=== PATIENT | male | born 2000 | race Caucasian/White ===

== ENCOUNTER 2023-01-21 11:47 | Emergency (ER) | payer BC, OTHER ==
[2023-01-21 11:52] VITALS: BP 122/77; PULSE 92; RESP 18; TEMP 98.9
[2023-01-21] MEDS ORDERED: HYDROcodone/APAP 5-325MG 1 EACH TAB PO STA (12:05)
[2023-01-21] MEDS ORDERED: ACET/COD 300 MG/30 MG STARTER PACK 6 TAB BTL PO STA (12:05)
--- NOTE | 2023-01-21 12:07 | ED ---
ENT HPI - General Chief complaint: Dental/Oral Stated complaint: Abscess L side of Face Swollen Time Seen by Provider: 01/21/23 11:55 Source: patient, RN notes reviewed Mode of arrival: ambulatory Limitations: no limitations - History of Present Illness Initial comments: 23-year-old male presents emergency Department with chief complaint of left- sided dental pain and swelling. Patient was seen at urgent care was given some naproxen. Patient states swelling has worsened. He is appointment with dentist tomorrow. He states that it tooth that fractured. Patient denies any fevers or chills no drainage. - Related Data Previous Rx's Medication Instructions Recorded clindamycin HCL 300 mg PO QID #40 cap 01/21/23 Allergies Allergy/AdvReac Type Severity Reaction Status Date / Time sulfamethoxazole Allergy Unknown Verified 01/21/23 11:53 [From Bactrim] Childhood trimethoprim [From Bactrim] Allergy Unknown Verified 01/21/23 11:53 Childhood Review of Systems ROS Statement: Those systems with pertinent positive or pertinent negative responses have been documented in the HPI. ROS Other: All systems not noted in ROS Statement are negative. Past Medical History Past Medical History: No Reported History History of Any Multi-Drug Resistant Organisms: None Reported Past Surgical History: No Surgical Hx Reported Past Psychological History: No Psychological Hx Reported Smoking Status: Vaper Past Alcohol Use History: None Reported Past Drug Use History: None Reported General Exam Limitations: no limitations General appearance: alert, in no apparent distress Head exam: Present: atraumatic, normocephalic, normal inspection Eye exam: Present: normal appearance, PERRL, EOMI. Absent: scleral icterus, conjunctival injection, periorbital swelling ENT exam: Present: mucous membranes moist, TM's normal bilaterally, normal external ear exam. Absent: normal oropharynx (Dental fracture left lower with moderate swelling, no drainable abscess) Neck exam: Present: normal inspection, full ROM. Absent: tenderness, meningismus, lymphadenopathy Respiratory exam: Present: normal lung sounds bilaterally. Absent: respiratory distress, wheezes, rales, rhonchi, stridor Cardiovascular Exam: Present: regular rate, normal rhythm, normal heart sounds. Absent: systolic murmur, diastolic murmur, rubs, gallop, clicks Course Vital Signs 01/21/23 11:48 Temperature 98.9 F Pulse Rate 92 Respiratory 18 Rate Blood Pressure 122/77 O2 Sat by Pulse 98 Oximetry Medical Decision Making - Medical Decision Making Was pt. sent in by a medical professional or institution (YANIQUE Hankins, FRONT OFFICE ADMINISTRATOR, urgent care, hospital, or detention...) When possible be specific @ -No Did you speak to anyone other than the patient for history (EMS, parent, family, police, friend...)? What history was obtained from this source @ -No Did you review nursing and triage notes (agree or disagree)? Why? @ -I reviewed and agree with nursing and triage notes Were old charts reviewed (outside hosp., previous admission, EMS record, old EKG, old radiological studies, urgent care reports/EKG's, detention records)? Report findings @ -No old charts were reviewed Differential Diagnosis (chest pain, altered mental status, abdominal pain women, abdominal pain men, vaginal bleeding, weakness, fever, dyspnea, syncope, headache, dizziness, GI bleed, back pain, seizure, CVA, palpatations, mental health, musculoskeletal)? @ -Dental abscess, dental fracture, dental infection EKG interpreted by me (3pts min.). @ -None X-rays interpreted by me (1pt min.). @ -None done CT interpreted by me (1pt min.). @ -None done U/S interpreted by me (1pt. min.). @ -None done What testing was considered but not performed or refused? (CT, X-rays, U/S, labs)? Why? @ -None What meds were considered but not given or refused? Why? @ -None Did you discuss the management of the patient with other professionals (professionals i.e. YANIQUE Hankins, FRONT OFFICE ADMINISTRATOR, lab, RT, psych nurse, rn social work, marketing project lead, teacher, guest relations officer, case managers)? Give summary @ -No Was smoking cessation discussed for >3mins.? @ -No Was critical care preformed (if so, how long)? @ -No Were there social determinants of health that impacted care today? How? (Homelessness, low income, unemployed, alcoholism, drug addiction, transportation, low edu. Level, literacy, decrease access to med. care, usp, rehab)? @ -No Was there de-escalation of care discussed even if they declined (Discuss DNR or withdrawal of care, Hospice)? DNR status @ -No What co-morbidities impacted this encounter? (DM, HTN, Smoking, COPD, CAD, Cancer, CVA, ARF, Chemo, Hep., AIDS, mental health diagnosis, sleep apnea, morbid obesity)? @ -None Was patient admitted / discharged? Hospital course, mention meds given and route, prescriptions, significant lab abnormalities, going to OR and other pertinent info. @ -Discharge patient we placed on clindamycin patient has a follow-up appointment tomorrow with dentist patient provided pain control return parameters were discussed. Undiagnosed new problem with uncertain prognosis? @ -No Drug Therapy requiring intensive monitoring for toxicity (Heparin, Nitro, Insulin, Cardizem)? @ -No Were any procedures done? @ -No Diagnosis/symptom? @ -Dental abscess Acute, or Chronic, or Acute on Chronic? @ -Acute Uncomplicated (without systemic symptoms) or Complicated (systemic symptoms)? @ - uncomplicated Side effects of treatment? @ -No Exacerbation, Progression, or Severe Exacerbation? @ -No Poses a threat to life or bodily function? How? (Chest pain, [place], [place], pneumonia, PE, COPD, DKA, ARF, appy, cholecystitis, CVA, Diverticulitis, Homicidal, Suicidal, threat to staff... and all critical care pts) @ -No Disposition Clinical Impression: Dental abscess, Fracture of tooth Disposition: HOME SELF-CARE Condition: Stable Instructions (If sedation given, give patient instructions): Dental Abscess (ED) Additional Instructions: Please return to the Emergency Department if symptoms worsen or any other concerns. Prescriptions: clindamycin HCL 300 mg PO QID #40 cap Is patient prescribed a controlled substance at d/c from ED?: No Referrals: None,Stated [Primary Care Provider] - 1-2 days Time of Disposition: 12:06
== END 2023-01-21 12:17 | disposition home or self-care (01) ==
LOC: EC 11:47
DX: K04.7 Periapical abscess without sinus (principal); K03.81 Cracked tooth; F17.290 Nicotine dependence, other tobacco product, uncomplicated; Z88.1 Allergy status to other antibiotic agents; Z88.2 Allergy status to sulfonamides
CPT/HCPCS: 99283

== ENCOUNTER 2023-01-24 12:07 | Inpatient (IN) | payer BC, OTHER ==
[2023-01-24] MEDS ORDERED: MORPHINE SULFATE 4 MG/ML SYRINGE IVP STA (14:52)
--- NOTE | 2023-01-24 14:54 | ED ---
ENT HPI - General Chief complaint: Dental/Oral Stated complaint: facial swelling Time Seen by Provider: 01/24/23 14:31 Source: patient Mode of arrival: ambulatory Limitations: no limitations - History of Present Illness Initial comments: 23 year old male presenting to the ED with a chief complaint of dental problem. Patient initially presented to the ED 3 days ago due to dental pain and swelling. Was prescribed clindamycin and patient reports that he has been taking this as instructed. He didn't follow-up with his dentist the following day and reports no dental procedure until swelling has improved however advised him to continue antibiotics. Despite continuing antibiotics notes increased swelling on the left side of his face and now notes that it feels like it started to spread to his neck. Denies fever. Denies dyspnea. No other complai nts. - Related Data Previous Rx's Medication Instructions Recorded clindamycin HCL 300 mg PO QID #40 cap 01/21/23 Allergies Allergy/AdvReac Type Severity Reaction Status Date / Time sulfamethoxazole Allergy Unknown Verified 01/24/23 12:16 [From Bactrim] Childhood trimethoprim [From Bactrim] Allergy Unknown Verified 01/24/23 12:16 Childhood Review of Systems ROS Statement: Those systems with pertinent positive or pertinent negative responses have been documented in the HPI. ROS Other: All systems not noted in ROS Statement are negative. Past Medical History Past Medical History: No Reported History History of Any Multi-Drug Resistant Organisms: None Reported Past Surgical History: No Surgical Hx Reported Past Psychological History: No Psychological Hx Reported Smoking Status: Vaper Past Alcohol Use History: None Reported Past Drug Use History: None Reported General Exam Limitations: no limitations General appearance: alert Head exam: Present: atraumatic ENT exam: Present: other (Significant swelling on the left side of the face with swelling extending into the neck. Airway patent.) Respiratory exam: Present: normal lung sounds bilaterally Cardiovascular Exam: Present: regular rate, normal rhythm GI/Abdominal exam: Present: soft Neurological exam: Present: alert, oriented X3 Skin exam: Present: warm, dry Course Vital Signs 01/24/23 01/24/23 12:13 15:09 Temperature 98.2 F Pulse Rate 94 82 Respiratory 18 16 Rate Blood Pressure 151/77 115/76 O2 Sat by Pulse 99 99 Oximetry Medical Decision Making - Medical Decision Making Was pt. sent in by a medical professional or institution (Dr., PA, PREDATORY ANIMAL EXTERMINATOR, urgent care, hospital, or longterm...) When possible be specific @ -No Did you speak to anyone other than the patient for history (EMS, parent, family, police, friend...)? What history was obtained from this source @ -No Did you review nursing and triage notes (agree or disagree)? Why? @ -I reviewed and agree with nursing and triage notes Were old charts reviewed (outside hosp., previous admission, EMS record, old EKG, old radiological studies, urgent care reports/EKG's, longterm records)? Report findings @ -No old charts were reviewed Differential Diagnosis (chest pain, altered mental status, abdominal pain women, abdominal pain men, vaginal bleeding, weakness, fever, dyspnea, syncope, headache, dizziness, GI bleed, back pain, seizure, CVA, palpatations, mental health, musculoskeletal)? @ -Renzo angina, ANUG, dental abscess. This is not meant to be an all-incl usive list. EKG interpreted by me (3pts min.). @ -None, pending X-rays interpreted by me (1pt min.). @ -None done CT interpreted by me (1pt min.). @ -CT soft tissue showed extensive left facial cellulitis with multifocal abscess measuring approximately 3 x 2 cm with area of focal dental caries and osseous erosion at lower left third molar region. U/S interpreted by me (1pt. min.). @ -None done What testing was considered but not performed or refused? (CT, X-rays, U/S, labs)? Why? @ -None What meds were considered but not given or refused? Why? @ -None Did you discuss the management of the patient with other professionals (professionals i.e. , PA, PREDATORY ANIMAL EXTERMINATOR, lab, RT, psych nurse, social media senior associate, building supplies salesperson retail, teacher, chief operations officer, senior case manager)? Give summary @ -Case discussed with Dr. Otero of ENT who advised contacting oral surgery. Spoke to Dr. Petersen of oral surgery who recommended admission of the patient. He will see the patient himself either today or tomorrow. Was smoking cessation discussed for >3mins.? @ -No Was critical care preformed (if so, how long)? @ -No Were there social determinants of health that impacted care today? How? (Homelessness, low income, unemployed, alcoholism, drug addiction, transportation, low edu. Level, literacy, decrease access to med. care, half-way, rehab)? @ -No Was there de-escalation of care discussed even if they declined (Discuss DNR or withdrawal of care, Hospice)? DNR status @ -No What co-morbidities impacted this encounter? (DM, HTN, Smoking, COPD, CAD, Cancer, CVA, ARF, Chemo, Hep., AIDS, mental health diagnosis, sleep apnea, morbid obesity)? @ -None Was patient admitted / discharged? Hospital course, mention meds given and route, prescriptions, significant lab abnormalities, going to OR and other pertinent info. @ -Admission. Labs significant for an elevated white count at 12.7, otherwise unremarkable. Computed tomography scan significant for extensive left facial cellulitis with multifocal abscess measuring approximately 3 x 2 cm with area of focal dental caries and osseous erosion at lower left third molar region. Discussed with Dr. Petersen of oral surgery who advised admission and will evaluate the patient. Patient will be kept nothing by mouth. Discussed plan of care with patient who is in agreement. Undiagnosed new problem with uncertain prognosis? @ -No Drug Therapy requiring intensive monitoring for toxicity (Heparin, Nitro, Insulin, Cardizem)? @ -No Were any procedures done? @ -No Diagnosis/symptom? @ -Facial abscess Acute, or Chronic, or Acute on Chronic? @ -Acute Uncomplicated (without systemic symptoms) or Complicated (systemic symptoms)? @ -Uncomplicated Side effects of treatment? @ -No Exacerbation, Progression, or Severe Exacerbation? @ -No Poses a threat to life or bodily function? How? (Chest pain, [place], [place], pneumonia, PE, COPD, DKA, ARF, appy, cholecystitis, CVA, Diverticulitis, Homicidal, Suicidal, threat to staff... and all critical care pts) @ -No - Lab Data Result diagrams: 01/24/23 14:54 01/24/23 14:54 Lab Results 01/24/23 01/24/23 01/24/23 Range/Units 14:54 14:54 14:54 WBC 12.7 H (3.8-10.6) k/uL RBC 4.91 (4.30-5.90) m/uL Hgb 14.8 (13.0-17.5) gm/dL Hct 42.3 (39.0-53.0) % MCV 86.1 (80.0-100.0) fL MCH 30.1 (25.0-35.0) pg MCHC 35.0 (31.0-37.0) g/dL RDW 11.8 (11.5-15.5) % Plt Count 224 (150-450) k/uL MPV 7.9 Neutrophils % 86 % Lymphocytes % 6 % Monocytes % 5 % Eosinophils % 2 % Basophils % 0 % Neutrophils # 11.0 H (1.3-7.7) k/uL Lymphocytes # 0.8 L (1.0-4.8) k/uL Monocytes # 0.7 (0-1.0) k/uL Eosinophils # 0.2 (0-0.7) k/uL Basophils # 0.0 (0-0.2) k/uL Sodium 140 (137-145) mmol/L Potassium 4.1 (3.5-5.1) mmol/L Chloride 99 (98-107) mmol/L Carbon Dioxide 29 (22-30) mmol/L Anion Gap 12 mmol/L BUN 15 (9-20) mg/dL Creatinine 0.65 L (0.66-1.25) mg/dL Est GFR (CKD-EPI)AfAm >90 (>60 ml/min/1.73 sqM) Est GFR (CKD-EPI)NonAf >90 (>60 ml/min/1.73 sqM) Glucose 132 H (74-99) mg/dL Plasma Lactic Acid Joey 1.4 (0.7-2.0) mmol/L Calcium 9.5 (8.4-10.2) mg/dL Total Bilirubin 0.7 (0.2-1.3) mg/dL AST 18 (17-59) U/L ALT 30 (4-49) U/L Alkaline Phosphatase 76 (38-126) U/L Total Protein 8.2 (6.3-8.2) g/dL Albumin 4.4 (3.5-5.0) g/dL Disposition Clinical Impression: Facial abscess Disposition: ADMITTED IP TO THIS [facility] Instructions (If sedation given, give patient instructions): Dental Abscess (ED) Referrals: None,Stated [Primary Care Provider] - 1-2 days Time of Disposition: 17:00
[2023-01-24 15:24] LABS: Basophils % (A) 0 %; Eosinophils # (A) 0.2 k/uL (0-0.7); Eosinophils % (A) 2 %; HCT 42.3 % (39.0-53.0); HGB 14.8 gm/dL (13.0-17.5); Lymphocytes # (A) 0.8 k/uL (1.0-4.8); Lymphocytes % (A) 6 %; MCH 30.1 pg (25.0-35.0); MCV 86.1 fL (80.0-100.0); Mean Platelet Volume 7.9; Monocytes # (A) 0.7 k/uL (0-1.0); Monocytes % (A) 5 %; Neutrophils % (A) 86 %; Platelet Count 224 k/uL (150-450); RBC 4.91 m/uL (4.30-5.90); RDW 11.8 % (11.5-15.5); WBC 12.7 k/uL (3.8-10.6)
[2023-01-24 15:34] LABS: ALT 30 U/L (4-49); AST 18 U/L (17-59); African American GFR (CKD) >90 (>60 ml/min/1.73 sqM); Albumin 4.4 g/dL (3.5-5.0); Alkaline Phosphatase 76 U/L (38-126); Anion Gap 12 mmol/L; Blood Urea Nitrogen 15 mg/dL (9-20); Calcium 9.5 mg/dL (8.4-10.2); Carbon Dioxide 29 mmol/L (22-30); Chloride 99 mmol/L (98-107); Glucose 132 mg/dL (74-99); Non-African American GFR(CKD) >90 (>60 ml/min/1.73 sqM); Potassium 4.1 mmol/L (3.5-5.1); Sodium 140 mmol/L (137-145); Total Bilirubin 0.7 mg/dL (0.2-1.3); Total Protein 8.2 g/dL (6.3-8.2)
--- NOTE | 2023-01-24 16:15 | CT ---
EXAMINATION TYPE: CT soft tissue neck w con DATE OF EXAM: 01/24/2023 COMPARISON: Non- HISTORY: R/O melina. CT DLP: 186.4 mGycm CONTRAST: CT scan of the neck is performed with IV Contrast, patient injected with 100 ml mL of Isovue 300. Contrast enhanced CT of the neck was performed from the skull base through the lung apices. There is extensive left facial soft tissue cellulitis extending from the approximate level of the TMJ joint through the submandibular region. There are multifocal areas of decreased attenuation noted fe lt to reflect multifocal abscess extending from the angle of the mandible through the anterior mandib ular body region. Exact measurement is difficult to elucidate however dominant abscess is seen more a nteriorly and measures 3.0 x 1.9 cm. Inflammatory changes seen at the floor of the mouth on the left. Focal area of dental caries seen with osseous erosion lower left third molar region. AIRWAY: The supraglottic, glottic, and subglottic portions of the airway appear patent. SALIVARY GLANDS: The submandibular and parotid glands are free of mass or inflammatory process. THYROID GLAND: No nodules or masses seen. LYMPH NODES: Reactive adenopathy within the submental region measuring up to 9.3 mm. Reactive lymph n ode left internal jugular chain measuring 9.4 mm. LUNG APICES: No nodule or mass is seen. OTHER: Vascular structures are patent. No significant degenerative change of the cervical spine. N o abscess seen. IMPRESSION: 1. Extensive left facial cellulitis with multifocal abscesses as discussed above. There is inflammato ry change noted at the floor of the mouth on the left with focal area of dental caries seen with osse ous erosion lower left third molar region. At this time there is no evidence for narrowing of the air way or significant mass effect. Reactive adenopathy seen.
[2023-01-24] MEDS ORDERED: AMPICILLIN-SULBACTAM 3 GM in SODIUM CHLORIDE 0.9% 50 ML IVPB STA (16:45)
[2023-01-24] MEDS ORDERED: AMPICILLIN-SULBACTAM 3 GM in SODIUM CHLORIDE 0.9% 100 ML IVPB STA (16:47)
[2023-01-24] MEDS ORDERED: HYDROmorphone 1 MG/ML 1 ML SYRINGE IVP STA (17:06)
[2023-01-24] MEDS ORDERED: NALOXONE 0.4 MG/ML 1 ML VIAL IV PRN (17:34)
[2023-01-24] MEDS ORDERED: HYDROmorphone 0.5 MG/0.5 ML SYRINGE IVP PRN (17:34)
[2023-01-24] MEDS ORDERED: ONDANSETRON 4 MG/2 ML VIAL IVP PRN (17:34)
[2023-01-24] MEDS ORDERED: ACETAMINOPHEN TAB 325 MG TAB PO PRN (17:34)
[2023-01-24] MEDS ORDERED: HYDROmorphone 1 MG/ML 1 ML SYRINGE IVP PRN (17:34)
[2023-01-24] MEDS: SODIUM CHLORIDE 0.9% 1,000 ML IV SCH (18:48)
[2023-01-24] MEDS: CLINDAMYCIN 300 MG in DEXTROSE 5% IN WATER 50 ML IVPB SCH ×2 (19:13)
[2023-01-24 22:22] VITALS: RESP 18
[2023-01-24] MEDS: AMPICILLIN-SULBACTAM 3 GM in SODIUM CHLORIDE 0.9% 100 ML IVPB SCH (23:29)
[2023-01-25] MEDS: CLINDAMYCIN 300 MG in DEXTROSE 5% IN WATER 50 ML IVPB SCH ×4 (00:46→06:00)
[2023-01-25 02:15] VITALS: BP 112/61
[2023-01-25] MEDS: AMPICILLIN-SULBACTAM 3 GM in SODIUM CHLORIDE 0.9% 100 ML IVPB SCH (05:19)
[2023-01-25 07:26] LABS: HCT 39.6 % (39.0-53.0); HGB 13.7 gm/dL (13.0-17.5); MCH 29.9 pg (25.0-35.0); MCHC 34.6 g/dL (31.0-37.0); MCV 86.4 fL (80.0-100.0); Mean Platelet Volume 7.9; Platelet Count 258 k/uL (150-450); RBC 4.58 m/uL (4.30-5.90); WBC 13.4 k/uL (3.8-10.6)
--- NOTE | 2023-01-25 07:48 | P.GSCN ---
History of Present Illness Consult date: 01/25/23 Reason for Consult: Dental abscess Requesting physician: Abiodun Castillo History of present illness: 23 year old male presenting to the ED with a chief complaint of dental problem. Patient initially presented to the ED 3 days ago due to dental pain and swelling. Was prescribed Amoxicillin and patient reports that he has been taking this as instructed. He did follow-up with his dentist on [address] the following day and reports no dental procedure until swelling has improved however advised him to continue antibiotics. Despite continuing antibiotics notes increased swelling on the left side of his face and now notes that it feels like it started to spread to his neck. Has been in observation unit overnight receiving clindamycin IV. Reports he feels no worse this morning perhaps better. Denies fever. Denies dyspnea. No other complaints. Review of Systems As per HPI Past Medical History Past Medical History: No Reported History History of Any Multi-Drug Resistant Organisms: None Reported Past Surgical History: No Surgical Hx Reported Past Psychological History: No Psychological Hx Reported Smoking Status: Vaper Past Alcohol Use History: None Reported Past Drug Use History: None Reported Medications and Allergies Home Medications Medication Instructions Recorded Confirmed Type clindamycin HCL 300 mg PO QID #40 cap 01/21/23 01/24/23 Rx Chlorhexidine Gluconate [Peridex] 15 ml PO BID 01/24/23 01/24/23 History Ibuprofen [Motrin Ib] 800 mg PO Q6H PRN 01/24/23 01/24/23 History Allergies Allergy/AdvReac Type Severity Reaction Status Date / Time sulfamethoxazole Allergy Unknown Verified 01/24/23 18:14 [From Bactrim] Childhood trimethoprim [From Bactrim] Allergy Unknown Verified 01/24/23 18:14 Childhood Surgical - Exam Vital Signs Temp Pulse Resp BP Pulse Ox 98.2 F 94 18 151/77 99 01/24/23 12:13 01/24/23 12:13 01/24/23 12:13 01/24/23 12:13 01/24/23 12:13 Patient lying in bed with a friend at the bedside. Appears comfortable easily arousable alert and oriented 3. Patient has a 2 cm x 2 cm fluctuant swelling the mandibular body on the left side adjacent to tooth #18. Swelling is demarcated. No fistula noted. Swelling is tender but able to palpate. Intraoral exam is difficult to the trismus patient able to open approximately 15 mm. Reports painful when attempting open wider. Visibly tooth #18 appears fractured. No pus noted intraorally. Floor of the mouth is normal. The patient's tongue is not swollen. Patient's able to swallow without difficulty. Results - Labs 01/25/23 06:41 01/24/23 14:54 Abnormal Lab Results - Last 24 Hours (Table) 01/24/23 01/24/23 01/25/23 Range/Units 14:54 14:54 06:41 WBC 12.7 H 13.4 H (3.8-10.6) k/uL Neutrophils # 11.0 H (1.3-7.7) k/uL Lymphocytes # 0.8 L (1.0-4.8) k/uL Creatinine 0.65 L (0.66-1.25) mg/dL Glucose 132 H (74-99) mg/dL Diabetes panel 01/24/23 Range/Units 14:54 Sodium 140 (137-145) mmol/L Potassium 4.1 (3.5-5.1) mmol/L Chloride 99 (98-107) mmol/L Carbon Dioxide 29 (22-30) mmol/L BUN 15 (9-20) mg/dL Creatinine 0.65 L (0.66-1.25) mg/dL Glucose 132 H (74-99) mg/dL Calcium 9.5 (8.4-10.2) mg/dL AST 18 (17-59) U/L ALT 30 (4-49) U/L Alkaline Phosphatase 76 (38-126) U/L Total Protein 8.2 (6.3-8.2) g/dL Albumin 4.4 (3.5-5.0) g/dL Calcium panel 01/24/23 Range/Units 14:54 Calcium 9.5 (8.4-10.2) mg/dL Albumin 4.4 (3.5-5.0) g/dL Pituitary panel 01/24/23 Range/Units 14:54 Sodium 140 (137-145) mmol/L Potassium 4.1 (3.5-5.1) mmol/L Chloride 99 (98-107) mmol/L Carbon Dioxide 29 (22-30) mmol/L BUN 15 (9-20) mg/dL Creatinine 0.65 L (0.66-1.25) mg/dL Glucose 132 H (74-99) mg/dL Calcium 9.5 (8.4-10.2) mg/dL Adrenal panel 01/24/23 Range/Units 14:54 Sodium 140 (137-145) mmol/L Potassium 4.1 (3.5-5.1) mmol/L Chloride 99 (98-107) mmol/L Carbon Dioxide 29 (22-30) mmol/L BUN 15 (9-20) mg/dL Creatinine 0.65 L (0.66-1.25) mg/dL Glucose 132 H (74-99) mg/dL Calcium 9.5 (8.4-10.2) mg/dL Total Bilirubin 0.7 (0.2-1.3) mg/dL AST 18 (17-59) U/L ALT 30 (4-49) U/L Alkaline Phosphatase 76 (38-126) U/L Total Protein 8.2 (6.3-8.2) g/dL Albumin 4.4 (3.5-5.0) g/dL - Imaging Comments: Images from the CAT scan reviewed. Area of abscess noted on the buccal aspect of the mandibular body. The wisdom tooth in the area does not appear question if there is a wisdom tooth present and #17 but tooth #18 does appear fractured. Plan to repeat a study with a panoramic x-ray upon discharge. Assessment and Plan Assessment: Dental abscess was with tooth #18 appears to be responding well to current treatment Plan: The abscess is related to the dental decay of tooth #18 and recommended extraction of tooth #18 through his convenience. Due to the patient's nothing by mouth status recommended extraction. Also drainage of the abscess would be indicated if of purulence comes out through the extraction site. The patient's unable to follow-up recommend changing antibiotic to Augmentin as the patient reports a history of taking amoxicillin for this abscess. I discussed the plan with the patient to come to my office today 11:00 for IV sedation and extraction with possible extraoral drainage placement the patient was amenable this friend at the bedside said he can drive. addresses [id number] [place] [address] [address] [facility] ([place], [place]). [phone]
[2023-01-25 07:59] LABS: African American GFR (CKD) >90 (>60 ml/min/1.73 sqM); Anion Gap 10 mmol/L; Blood Urea Nitrogen 10 mg/dL (9-20); Carbon Dioxide 28 mmol/L (22-30); Chloride 99 mmol/L (98-107); Glucose 95 mg/dL (74-99); Non-African American GFR(CKD) >90 (>60 ml/min/1.73 sqM); Sodium 137 mmol/L (137-145)
[2023-01-25 08:31] VITALS: PULSE 52; TEMP 98
[2023-01-25] MEDS: SODIUM CHLORIDE 0.9% 1,000 ML IV SCH (08:59)
[2023-01-25] MEDS ORDERED: ENOXAPARIN 40 MG/0.4 ML SYRINGE SQ SCH (09:00)
[2023-01-25 09:33] LABS: C Reactive Protein 12.3 mg/dL (<1.0)
--- NOTE | 2023-01-25 15:20 | P.HPIM ---
History of Present Illness H&P Date: 01/25/23 This is a 23-year-old male who presented to the emergency department with left- sided facial swelling and tooth pain that have been ongoing since last week. Patient was here a few days ago with noted abscess and cellulitis and was given antibiotics and instructed to keep dental appointment he had and was discharged home. Patient returned back as patient had significant worsening swelling and m outh pain. Patient was admitted under observation and oral maxillofacial surgeon Dr. Maddox was consulted. Patient was started on Unasyn and received this overnight. Patient was seen and evaluated by Dr. Maddox this morning and requested him to be discharged before 11 AM so he can make it to his [address] in [facility] for surgical intervention. In the ER patient had soft tissue neck CT which showed an extensive left facial cellulitis with multifocal abscesses extending from the angle of the mandible through the anterior mandibular body region with inflammatory changes seen at the floor of the mouth on the left with focal areas of dental caries seen with osseous erosion of the lower left third molar region airways patent, submandibular and parotid glands are free of mass or inflammatory process with no nodules or masses seen. There is a reactive lymph node in the left internal jugular chain measuring 9.4 mm in a reactive adenopathy in the submental region measuring up to 9.[address] Maddox's report there is a fractured tooth #18 along with significant facial cellulitis and swelling of approximately 2 cm x 2 cm of the mandibular body on the left side. There has been no drainage in the mouth patient reports and patient denies any fevers. Patient does have a mild white count of 13.4 this morning and remains afebrile, other labs reviewed and within normal limits. Dr. Maddox would like the patient to go to the office for tooth extraction along with possible drainage of this abscess. Patient is agreeable and will be discharged for surgical intervention. Patient has no primary care provider and does have a community dentist that he did go to that told him to vj amin with antibiotics as no intervention would be done until the swelling had gone down. Patient will need follow-up with dental along with primary care to establish. Resources were provided. Review Of Systems: Constitutional: No fever, no chills, no night sweats. No weight change. No weakness, fatigue or lethargy. No daytime sleepiness. EENT: No headache. No blurred vision or double vision, no loss of vision. No loss of Hearing, no ringing in the ears, no dizziness. No nasal drainage or congestion. No epistaxis. No sore throat. Lungs: No shortness of breath, cough, no sputum production. No wheezing. Cardiovascular: No chest pain, no lower extremity edema. No palpitations. No paroxysmal nocturnal dyspnea. No orthopnea. No lightheadedness or dizziness. No syncopal episodes. Abdominal: No abdominal pain. No nausea, vomiting. No diarrhea. No constipation. No bloody or tarry stools.. No loss of appetite. Genitourinary: No dysuria, increased frequency, urgency. No urinary retention. Musculoskeletal: No myalgias. No muscle weakness, no gait dysfunction, no frequent falls. No back pain. No neck pain. Integumentary: No wounds, no lesions. No rash or pruritus. No unusual bruising. No change in hair or nails. Reports Large painful reddened lump on left side of jaw that has gotten bigger Neurologic: No aphasia. No facial droop. No change in mentation. No head injury. No headache. No paralysis. No paresthesia. Psychiatric: No depression. No anxiety. No mood swings. Endocrine: No abnormal blood sugars. No weight change. No excessive sweating or thirst. No cold intolerance. PHYSICAL EXAMINATION: GENERAL: The patient is alert and oriented x4, thin built. Well developed, well nourished. HEENT: Pupils are round and equally reacting to light. EOMI. no scleral icterus. No conjunctival pallor. Normocephalic, atraumatic. No pharyngeal erythema. No thyromegaly. CARDIOVASCULAR: S1 and S2 muffled PULMONARY: diminished breath sounds bilaterally with no wheezing or rhonchi noted. ABDOMEN: soft. Nontender on exam. obese. non-distended, normoactive bowel sounds. No palpable organomegaly. MUSCULOSKELETAL: No joint swelling or deformity. EXTREMITIES: No cyanosis, clubbing, or pedal edema. NEUROLOGICAL: Gross neurological examination did not reveal any focal deficits. Diffuse weakness SKIN: No rashes. Left side mandibular facial abscess with redness approximately 2 cm x 2 cm that is fluctuant on palpation and extremely tender to touch Assessment: Dental abscess with fractured tooth #18, with failure of outpatient treatment Facial redness and swelling with induration and fluctuation, concerns for facial cellulitis with facial abscess 2 centimeters x 2 centimeters secondary to dental fracture Leukocytosis, secondary to above Vaping GI prophylaxis DVT prophylaxis Full code Plan: Patient was started on IV antibiotics and infectious disease consulted along with oral maxillofacial surgeon Dr. maddox. Dr. Maddox evaluated the patient this morning recommending discharge to come to his office directly at 11 AM for tooth extraction as well as abscess drainage Patient is continued on antibiotics and will continue on clindamycin Patient does have an outpatient dentist in the community that he did follow-up with in October instructed him to continue with antibiotics until the swelling went down and then would be evaluated. Swelling and pain worsened and patient presented back to the ER Patient instructed to establish with primary care provider as soon as possible and resources were provided Patient was also instructed to report to the nearest ER or call 911 if having any difficulty in breathing, throat swelling, fevers, difficulty in oral intake, any worsening symptoms and patient verbalized understanding Patient did have a friend at the bedside that would be driving him to this oral surgeon appointment today. Patient will be discharged today and directed immediately to Dr. maddox's office [address] Recommend to continue with current medications and management per orthopedic services. Patient has been seen and evaluated by PT/OT therapy recommending rehab and patient is [facility] Appropriate home medications resumed and recommend to continue monitoring Accu-Cheks before meals and at bedtime and use sliding scale as needed. Patient tolerating diet with no reports of nausea or vomiting noted. Patient was maintained on IV ceftriaxone for possible acute urinary tract infection although denying any pain, frequency, dysuria and has been treated with IV ceftriaxone and patient will continue on oral doxycycline per orthopedic services. Recommend continue with incentive spirometer use at least 10 times every hour while awake and also patient will be continued on consistent carb diet. The impression and plan of care has been dictated by Paulina Cline, nurse practitioner as directed. Dr. Mally MD I have performed a history and examination and MDM of this patient, discussed the same with the dictator, and agree with the dictator's assessment and plan as written ,documented as a scribe. Based on total visit time, I have performed more than 50% of the visit. Any additional findings or plans will be noted. Past Medical History Past Medical History: No Reported History History of Any Multi-Drug Resistant Organisms: None Reported Past Surgical History: No Surgical Hx Reported Past Psychological History: No Psychological Hx Reported Smoking Status: Vaper Past Alcohol Use History: None Reported Past Drug Use History: None Reported Medications and Allergies Home Medications Medication Instructions Recorded Confirmed Type clindamycin HCL 300 mg PO QID #40 cap 01/21/23 01/24/23 Rx Chlorhexidine Gluconate [Peridex] 15 ml PO BID 01/24/23 01/24/23 History Ibuprofen [Motrin Ib] 800 mg PO Q6H PRN 01/24/23 01/24/23 History HYDROcodone/APAP 5-325MG [[place] 1 tab PO Q6HR PRN 3 Days #6 tab 01/25/23 Rx 5-325] Allergies Allergy/AdvReac Type Severity Reaction Status Date / Time sulfamethoxazole Allergy Unknown Verified 01/24/23 18:14 [From Bactrim] Childhood trimethoprim [From Bactrim] Allergy Unknown Verified 01/24/23 18:14 Childhood Physical Exam Vitals: Vital Signs Temp Pulse Pulse Pulse Resp BP BP 01/25/23 08:15 98.0 F 52 L 18 01/25/23 02:14 62 18 112/61 01/24/23 23:37 65 18 01/24/23 23:27 64 18 117/64 01/24/23 22:18 76 18 131/76 01/24/23 18:32 98.9 F 78 16 135/77 01/24/23 15:09 82 16 115/76 01/24/23 12:13 98.2 F 94 18 151/77 Pulse Ox 01/25/23 08:15 99 01/25/23 02:14 99 01/24/23 23:37 01/24/23 23:27 99 01/24/23 22:18 98 01/24/23 18:32 100 01/24/23 15:09 99 01/24/23 12:13 99 Intake and Output 01/24/23 01/25/23 01/25/23 22:59 06:59 14:59 Intake Total 400 Balance 400 Intake: Intake, IV Titration 400 Amount Ampicillin-Sulbactam 3 gm 100 In Sodium Chloride 0.9% 100 ml @ 200 mls/hr IVPB Q6HR [facility] Rx#:[id number] Clindamycin 300 mg In 50 Dextrose 5% in Water 50 ml @ 50 mls/hr IVPB Q6H [facility] Rx#:[id number] Sodium Chloride 0.9% 1, 250 000 ml @ 75 mls/hr IV . [id number] [facility] Rx#:[id number] Other: Voiding Method Toilet Weight 65.771 kg Results CBC & Chem 7: 01/25/23 06:41 01/25/23 06:41 Labs: Abnormal Lab Results - Last 24 Hours (Table) 01/24/23 01/24/23 01/25/23 Range/Units 14:54 14:54 06:41 WBC 12.7 H 13.4 H (3.8-10.6) k/uL Neutrophils # 11.0 H (1.3-7.7) k/uL Lymphocytes # 0.8 L (1.0-4.8) k/uL Creatinine 0.65 L (0.66-1.25) mg/dL Glucose 132 H (74-99) mg/dL Thrombosis Risk Factor Assmnt - DVT/VTE Prophylaxis DVT/VTE Prophylaxis: Low risk, early ambulation encouraged Assessment and Plan Time with Patient: Greater than 30
--- NOTE | 2023-01-27 20:10 | P.DS ---
Providers Date of admission: 01/24/23 17:18 Expected date of discharge: 01/25/23 Attending physician: Concepción Arceo MD Consults: 01/24/23 17:34 Consult Physician Urgent Consulting Provider: Hunter Petersen Consult Reason/Comments: Facial abscess Do you want consulting provider notified?: Yes Consult Physician Urgent Consulting Provider: Alexis Browning Consult Reason/Comments: facial abscess Do you want consulting provider notified?: Yes Primary care physician: Stated None Hospital Course: Final diagnosis Dental abscess with fractured tooth #18, with failure of outpatient treatment Facial redness and swelling with induration and fluctuation, concerns for facial cellulitis with facial abscess 2 centimeters x 2 centimeters secondary to dental fracture Leukocytosis, secondary to above Vaping GI prophylaxis DVT prophylaxis Full code Discharge disposition Patient is being discharged in a stable condition with guarded prognosis to home . Patient will follow-up with Dr. Layo Castillo in the outpatient setting upon discharge. Patient is to go directly to Dr. caraballo office as scheduled in [place] today at 11 for tooth extraction and abscess drainage. Total time taken is greater than 35 minutes. Hospital course This is a 23-year-old male who presented to the emergency department with left- sided facial swelling and tooth pain that have been ongoing since last week. Patient was here a few days ago with noted abscess and cellulitis and was given antibiotics and instructed to keep dental appointment he had and was discharged home. Patient returned back as patient had significant worsening swelling and mouth pain. Patient was admitted under observation and oral maxillofacial surgeon Dr. Petersen was consulted. Patient was started on Unasyn and received this overnight. Patient was seen and evaluated by Dr. Petersen this morning and requested him to be discharged before 11 AM so he can make it to his [address] in [place] office for surgical intervention. In the ER patient had soft tissue neck CT which showed an extensive left facial cellulitis with multifocal abscesses extending from the angle of the mandible through the anterior mandibular body region with inflammatory changes seen at the floor of the mouth on the left with focal areas of dental caries seen with osseous erosion of the lower left third molar region airways patent, submandibular and parotid glands are free of mass or inflammatory process with no nodules or masses seen. There is a reactive lymph node in the left internal jugular chain measuring 9.4 mm in a reactive adenopathy in the submental region measuring up to 9.[address] Petersen's report there is a fractured tooth #18 along with significant facial cellulitis and swelling of approximately 2 cm x 2 cm of the mandibular body on the left side. There has been no drainage in the mouth patient reports and patient denies any fevers. Patient does have a mild white count of 13.4 this morning and remains afebrile, other labs reviewed and within normal limits. Dr. Petersen would like the patient to go to the office for tooth extraction along with possible drainage of this abscess. Patient is agreeable a nd will be discharged for surgical intervention. Patient has no primary care provider and does have a community dentist that he did go to that told him to continue with antibiotics as no intervention would be done until the swelling had gone down. Patient will need follow-up with dental along with primary care to establish. Resources were provided. PHYSICAL EXAMINATION: GENERAL: The patient is alert and oriented x4, thin built. Well developed, well nourished. HEENT: Pupils are round and equally reacting to light. EOMI. no scleral icterus. No conjunctival pallor. Normocephalic, atraumatic. No pharyngeal erythema. No thyromegaly. CARDIOVASCULAR: S1 and S2 muffled PULMONARY: diminished breath sounds bilaterally with no wheezing or rhonchi noted. ABDOMEN: soft. Nontender on exam. obese. non-distended, normoactive bowel sounds. No palpable organomegaly. MUSCULOSKELETAL: No joint swelling or deformity. EXTREMITIES: No cyanosis, clubbing, or pedal edema. NEUROLOGICAL: Gross neurological examination did not reveal any focal deficits. Diffuse weakness SKIN: No rashes. Left side mandibular facial abscess with redness approximately 2 cm x 2 cm that is fluctuant on palpation and extremely tender to touch The impression and plan of care has been dictated by Paulina Cline, nurse practitioner as directed. Dr. Mally MD I have performed a history and examination and MDM of this patient, discussed the same with the dictator, and agree with the dictator's assessment and plan as written ,documented as a scribe. Based on total visit time, I have performed more than 50% of the visit. Any additional findings or plans will be noted. Patient Condition at Discharge: Stable Plan - Discharge Summary New Discharge Prescriptions: New HYDROcodone/APAP 5-325MG [[place] 5-325] 1 tab PO Q6HR PRN 3 Days #6 tab PRN Reason: Pain Continue Chlorhexidine Gluconate [Peridex] 15 ml PO BID clindamycin HCL 300 mg PO QID #40 cap Ibuprofen [Motrin Ib] 800 mg PO Q6H PRN PRN Reason: Pain Discharge Medication List clindamycin HCL 300 mg PO QID #40 cap 01/21/23 [Rx] Chlorhexidine Gluconate [Peridex] 15 ml PO BID 01/24/23 [History] Ibuprofen [Motrin Ib] 800 mg PO Q6H PRN 01/24/23 [History] HYDROcodone/APAP 5-325MG [[place] 5-325] 1 tab PO Q6HR PRN 3 Days #6 tab 01/25/23 [Rx] Follow up Appointment(s)/Referral(s): Hunter Petersen DDS [STAFF PHYSICIAN] - 01/25/23 11:00 am ([id number] [place] [address] ) Asia Liu MD [STAFF PHYSICIAN] - 1 Week Patient Instructions/Handouts: Hydrocodone/Acetaminophen (By mouth), Dental Abscess (ED) Activity/Diet/Wound Care/Special Instructions: Patient is to go directly to Dr. Petersen office and [place] for intervention Continue taking medications as prescribed and patient will likely be continued on antibiotics Patient instructed to monitor for any fevers or any worsening pain and inability to tolerate oral intake, worsening drainage to go to the local ER or call 911 Patient has been also given information on following up with primary care provider to establish with Discharge Disposition: HOME SELF-CARE
== END 2023-01-25 09:37 | disposition home or self-care (01) | DRG 158 ==
LOC: EC 12:07 → 4SSUR 17:18 → 1SOBS 19:45
PROVIDERS: ADMIT Internal Medicine; ATTEND Internal Medicine
DX: K04.7 Periapical abscess without sinus (principal); L02.01 Cutaneous abscess of face; L03.211 Cellulitis of face; F17.290 Nicotine dependence, other tobacco product, uncomplicated; K02.9 Dental caries, unspecified; S02.5XXA Fracture of tooth (traumatic), initial encounter for closed fracture; D72.829 Elevated white blood cell count, unspecified; Z28.310 Unvaccinated for COVID-19; Z88.2 Allergy status to sulfonamides
CPT/HCPCS: 36415; 70491; 80048; 80053; 83605; 85025; 85027; 86140; 87040; 96361; 96365; 96366; 96375; 99285